=== PATIENT | female | born 1945 | race Hispanic/Latino ===

== ENCOUNTER 2019-03-10 11:22 | Day surgery (SDC) | payer MEDICARE ==
[~2019-03-10 11:22] MED LIST: APRACLONIDINE 1% OPHTH SOLN DROPERETTE ONE; PHENYLEPHRINE 10% OPHTH SOLN 5 ML ONE; TROPICAMIDE 1% OPHTH SOLN 3 ML ONE
[2019-03-10] MEDS ORDERED: TROPICAMIDE 1% OPHTH SOLN 3 ML OD ONE (11:34)
[2019-03-10] MEDS ORDERED: APRACLONIDINE 1% OPHTH SOLN DROPERETTE OD ONE (11:34)
[2019-03-10] MEDS ORDERED: PHENYLEPHRINE 10% OPHTH SOLN 5 ML OD ONE (11:34)
[2019-03-10 12:28] VITALS: BP 131/61
== END 2019-03-10 11:23 | disposition home or self-care (01) ==
LOC: OR 11:22
PROVIDERS: ATTEND Specialist
DX: H26.491 Other secondary cataract, right eye (principal); G43.909 Migraine, unspecified, not intractable, without status migrainosus; E78.00 Pure hypercholesterolemia, unspecified; I10 Essential (primary) hypertension; G47.30 Sleep apnea, unspecified; K21.9 Gastro-esophageal reflux disease without esophagitis; Z90.13 Acquired absence of bilateral breasts and nipples; Z88.5 Allergy status to narcotic agent; Z88.2 Allergy status to sulfonamides; Z87.891 Personal history of nicotine dependence; Z79.891 Long term (current) use of opiate analgesic; Z98.49 Cataract extraction status, unspecified eye; Z86.2 Personal history of diseases of the blood and blood-forming organs and certain disorders involving the immune mechanism